=== PATIENT | female | born 1945 | race Caucasian/White ===

== ENCOUNTER 2017-04-23 18:33 | Inpatient (IN) | payer MEDICARE, OTHER ==
[2017-04-22 17:01] LABS: A/G RATIO 1.4 (0.7-1.9); ALBUMIN 3.6 G/DL (3.5-5.0); BUN (BLOOD UREA NITROGEN) 9 MG/DL (6-23); CALCIUM, SERUM 8.7 MG/DL (8.5-10.4); CHLORIDE, SERUM 102 MMOL/L (96-112); CO2 (CARBON DIOXIDE) 30 MMOL/L (24-34); CPK 36 U/L (0-200); CREATININE 0.72 MG/DL (0.55-1.02); GFR AFRICAN AMERICAN 96 ML/MIN (>=60); GFR NON AFRICAN AMERICAN 83 ML/MIN (>=60); GLOBULIN 2.5 G/DL (2.5-4.1); GLUCOSE, SERUM 83 MG/DL (60-99); HDL CHOLESTEROL 43 MG/DL (> 49); POTASSIUM, SERUM 4.1 MMOL/L (3.5-5.3); SGOT(AST) 19 U/L (5-40); SGPT(ALT) 25 U/L (5-65); SODIUM, SERUM 138 MMOL/L (135-148); TOTAL BILIRUBIN 0.4 MG/DL (0-1.2); TOTAL PROTEIN 6.1 G/DL (6.0-8.5)
[2017-04-22 17:07] LABS: ALKALINE PHOSPHATASE 94 U/L (45-117); CHOL/HDL RATIO(NOT ORDER) 4.1 (0-5); CHOLESTEROL 178 MG/DL (< 200); LDL CHOLESTEROL 82 MG/DL (< 130); NON-HDL CHOLESTEROL 135 MG/DL (< 160); TRIGLYCERIDE 267 MG/DL (< 150)
--- NOTE | ~2017-04-23 | HP ---
History And Physical [id number] [place]. [address] NAME: REY BRYAN : 43 STATUS : ADM IN PAT#: [id number] AGE: 72 ADM/REG DATE : 04/23/17 MR#: [id number] REPORT SERV DATE: 04/24/17 DICTATED BY: MAKSIM KUHN DATE: 04/24/17 REPORT STATUS : Draft TRANSCRIBED BY: MODL DATE: 04/24/17 DATE OF ADMISSION: 04/23/2017 REASON FOR ADMISSION: Uterine papillary serous carcinoma, cellulitis around the Port-A-Cath site, subjective fever. HISTORY OF PRESENT ILLNESS: Ms. Bryan is a delightful, 72-year-old, female, who on 12/02/2016, underwent a robot-assisted laparoscopic hysterectomy, BSO and staging. 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 She completed a whole pelvic radiation along with brachytherapy on 02/23/[address] Suzanne Williamson. She recently had a Port-A-Cath placed and received her 1st cycle of adjuvant [place]-based and taxane-based chemotherapy. She called the office earlier in the week complaining of some pain around her port site. She had severe erythema noted and was started on p.o. Bactrim and then called the office last night complaining of increasing pain around the port site, subjective fevers, and a burning sensation along the catheter tract. She was admitted for evaluation and IV antibiotics. PAST MEDICAL HISTORY: Gastroesophageal reflux disease, uterine cancer, hypertension, and anxiety. PAST SURGICAL HISTORY: The above-mentioned staging procedure, knee surgery, cholecystectomy, and tubal ligation. GYNECOLOGIC HISTORY: Her mammogram and Pap smear are both up to date. Her colonoscopy was in 2012. FAMILY HISTORY: Her father with prostate cancer. Her brother had a cancer at the age of 60; she is unsure of the details. SOCIAL HISTORY: Negative for tobacco, alcohol, or illicit drug use. MEDICATIONS: See chart. ALLERGIES: NO KNOWN DRUG ALLERGIES. REVIEW OF SYSTEMS: Significant for pain, albeit decreased at the port site. She denies chest pain. Denies shortness of breath. No abdominal pain and pelvic pain. No nausea or vomiting. No vaginal bleeding. PHYSICAL EXAMINATION: VITAL SIGNS: Temperature is 98.6, pulse is 76, blood pressure is 113/57. HEENT: She has decreased erythema compared to her clinic visit two days ago, but there is minimal blanching around the site and the erythema that is tracking along the catheter course is gone. At this point, her tenderness in that area has resolved. ABDOMEN: Soft, nontender, and nondistended. History And Physical [address] [address] NAME: REY BRYAN : 43 STATUS : ADM IN PAT#: [id number] AGE: 72 ADM/REG DATE : 04/23/17 MR#: [id number] REPORT SERV DATE: 04/24/17 DICTATED BY: MAKSIM KUHN DATE: 04/24/17 REPORT STATUS : Draft TRANSCRIBED BY: LISANDRA DATE: 04/24/17 HEART: Regular rate and rhythm. LUNGS: Clear to auscultation bilaterally. EXTREMITIES: No clubbing, cyanosis, or edema. LABORATORY EVALUATION: Her white blood count cell count is 8.2, hemoglobin 11.6, and platelet count 71. This is expected due to her recent chemotherapy. Her electrolyte panel was normal, and her UA was negative. She had a negative chest x-ray as well. She has blood cultures pending. IMPRESSION AND PLAN: The plan going forward is if her blood cultures are negative, we will continue with the IV vancomycin to see if the port can be salvaged. It seems that her infection is clinically much better after just one dose of the vancomycin. We will continue with the IV antibiotics for another 24 hours or so and then as long as her blood cultures are negative, send her home on oral Bactrim for another 10 days. She is anticipated to receive her 2nd cycle of [place]-based and taxane-based chemotherapy this coming Wednesday. TB/MODL Maksim Kuhn MD / [id number] CC: MD Rip Pziarro M.D.
--- NOTE | ~2017-04-23 | DS ---
Discharge Summary [facility] [address] [place]. [address] NAME: REY GIPSON : 43 STATUS : DIS IN PAT#: [id number] AGE: 72 ADM/REG DATE : 04/23/17 MR#: [id number] REPORT SERV DATE: 04/29/17 DICTATED BY: MAKSIM KUHN DATE: 04/29/17 REPORT STATUS : Draft TRANSCRIBED BY: LISANDRA DATE: 04/29/17 Data Collection from hospitalization DISCHARGE DIAGNOSES: 1. Uterine cancer. 2. Port infection. 3. Gastroesophageal reflux disease. 4. Hypertension. 5. Anxiety. CONSULTATIONS: None. PROCEDURES PERFORMED: None. MEDICATIONS: Norvasc 5 mg every morning, Celexa 20 mg every morning, Zantac 300 mg at bedtime, Prinivil 10 mg every morning, multivitamin with minerals one every morning, Protonix 40 mg twice daily before meals, Zocor 20 mg at bedtime, Carafate 1 g before meals and at bedtime, Bactrim DS one twice daily x7 days, Zofran 8 mg sublingually three times daily as needed, Decadron 20 mg as directed, Bactrim DS one every 12 hours, chemotherapy one dose IV every 21 days, Tylenol 1000 mg daily as needed, iron [id number] one every evening, and probiotic one at bedtime. CONDITION AT DISCHARGE: Upon discharge, she did appear to be doing well and had no complaints. DISPOSITION: She had been discharged home to continue a regular diet with activity as discussed. She was to follow up with me on 04/20/2017. HOSPITAL COURSE: This 72-year-old female, on 12/02/2016, underwent robot-assisted laparoscopic hysterectomy, BSO, and staging. 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 She had completed a whole pelvic radiation along with brachytherapy on 02/23/[address] Suzanne Williamson. She recently had a Port-A-Cath placed and received her first cycle of adjuvant [place] based and taxane-based chemotherapy. She called the office earlier in the week complaining of some pain around her port site. She had severe erythema noted and was started on oral Bactrim and then called the office complaining of increasing pain around the port site, subjective fever, and a burning sensation along with catheter tract. She was admitted for evaluation and IV antibiotics. Upon admission to the hospital, she had been placed on Benadryl 25 mg x1 dose and Toradol 30 mg IV x1 dose. She was begun on vancomycin per Pharmacy dosing. Following the day of admission, she was afebrile and her vital signs were stable. Her port site revealed much less erythema after being started on vancomycin and the pain at the port site was also much better. She was continued on antibiotics. Her blood culture was still pending, and her chest x-ray was noted to have been negative. On 04/25/2017, she was noted to be stable, however, was found to have a rash around the port and the erythema was almost resolved. Her blood culture was negative at 36 hours. Vancomycin was discontinued and she was placed on oral Bactrim. She was to receive Decadron and Benadryl if the rash and symptoms continued. On 04/26/2017, she did appear to be doing well and her port site was improved. She did remain in stable condition and was discharged home on oral antibiotics. She did remain in Discharge Summary [address] [address] NAME: REY GIPSON : 43 STATUS : DIS IN PAT#: [id number] AGE: 72 ADM/REG DATE : 04/23/17 MR#: [id number] REPORT SERV DATE: 04/29/17 DICTATED BY: MAKSIM KUHN DATE: 04/29/17 REPORT STATUS : Draft TRANSCRIBED BY: LISANDRA DATE: 04/29/17 stable condition and was discharged with the above instructions. Information collected by: Hermann GeronimoIMeeT. I submit the above information as my discharge summary. RW/LISANDRA Maksim Kuhn MD / [id number] CC: MD Rip Pizarro M.D.
[~2017-04-23 18:33] MED LIST: ASAB PO; CALCIUM; CALTRA600D PO; CLARIT10 PO; FISH-EPA1000 MG PO; PRILO PO; PRIN10 PO; VERELAN240 MG PO; ZOCOR20 PO
[2017-04-23 19:46] LABS: BASOPHILS 0.2 %; BASOPHILS ABSOLUTE 0.02 10/3/uL (0.0-0.16); EOSINOPHILS 0.9 %; EOSINOPHILS ABSOLUTE 0.07 10/3/uL (0.0-0.53); HEMATOCRIT 33.8 % (36.0-48.0); HEMOGLOBIN 11.6 g/dL (12.0-16.0); IMMATURE GRANULOCYTES 0.6 %; IMMATURE GRANULOCYTES ABSOLUTE 0.05 10/3/uL (0.0-0.11); LYMPHOCYTES 3.9 %; LYMPHOCYTES ABSOLUTE 0.32 10/3/uL (0.67-4.30); MEAN CORPUS HGB CONC 34.3 g/dL (32.0-36.0); MEAN CORPUSCULAR HEMOGLOB 29.6 pg (26.0-34.0); MEAN CORPUSCULAR VOLUME 86.2 fL (80-100); MEAN PLATELET VOLUME 10.4 fL (9.2-13.0); MONOCYTES 2.2 %; MONOCYTES ABSOLUTE 0.18 10/3/uL (0.21-1.20); NEUTROPHILS 92.2 %; NEUTROPHILS ABSOLUTE 7.51 10/3/uL (2.02-8.40); RBC DISTRIBUTION WIDTH 13.5 % (12.0-16.0); RED CELL COUNT 3.92 10/6/uL (4.0-5.6)
[2017-04-23 19:47] LABS: MANUAL DIFF NO %; PLATELET COUNT 71 10/3/uL (150-400); WHITE BLOOD CELLS 8.2 10/3/uL (4.5-10.5)
[2017-04-23 20:02] LABS: ALBUMIN 3.3 G/DL (3.5-5.0); BUN (BLOOD UREA NITROGEN) 10 MG/DL (6-23); CALCIUM, SERUM 8.3 MG/DL (8.5-10.4); CHLORIDE, SERUM 101 MMOL/L (96-112); CO2 (CARBON DIOXIDE) 28 MMOL/L (24-34); CREATININE 0.84 MG/DL (0.55-1.02); GFR AFRICAN AMERICAN 80 ML/MIN (>=60); GFR NON AFRICAN AMERICAN 69 ML/MIN (>=60); SGOT(AST) 18 U/L (5-40); SGPT(ALT) 22 U/L (5-65); SODIUM, SERUM 134 MMOL/L (135-148); TOTAL BILIRUBIN 0.4 MG/DL (0-1.2); TOTAL PROTEIN 6.4 G/DL (6.0-8.5)
[2017-04-23 20:03] LABS: A/G RATIO 1.1 (0.7-1.9); ALKALINE PHOSPHATASE 79 U/L (45-117); GLOBULIN 3.1 G/DL (2.5-4.1); GLUCOSE, SERUM 106 MG/DL (60-99)
[2017-04-23 20:07] LABS: PLATELET ESTIMATE DEC (ADEQUATE); RBC MORPHOLOGY NORM (NORMAL)
[2017-04-23] MEDS ORDERED: BACTRIM DS1 TAB PO (20:11)
[2017-04-23] MEDS ORDERED: ZOFRANODT8 PO/SL (20:12)
[2017-04-23] MEDS ORDERED: DEX4 PO ×2 (20:13→20:16)
[2017-04-23] MEDS ORDERED: PROTONIX PO (20:18)
[2017-04-23] MEDS ORDERED: ACET500CAP PO (20:18)
[2017-04-23] MEDS ORDERED: CHEMOTHERAPY IV (20:18)
[2017-04-23] MEDS ORDERED: ZANTAC300 MG PO (20:19)
[2017-04-23] MEDS ORDERED: SUCR PO (20:19)
[2017-04-23] MEDS ORDERED: PRIN10 PO (20:19)
[2017-04-23] MEDS ORDERED: CELEXA20 PO (20:19)
[2017-04-23] MEDS ORDERED: ZOCOR20 PO (20:19)
[2017-04-23] MEDS ORDERED: IRON OTC PO (20:20)
[2017-04-23] MEDS ORDERED: MULTIVIT/MIN PO (20:20)
[2017-04-23] MEDS ORDERED: NORV5 PO (20:20)
[2017-04-23] MEDS ORDERED: PROBIOTIC OTC PO (20:20)
[2017-04-23 21:40] LABS: ASCORBIC ACID (UR NOT ORDER) NEG (NEG); BILIRUBIN, URINE NEGATIVE (NEG); KETONE, URINE NEGATIVE (NEG); LEUKOCYTE ESTERASE(NOT OR NEG (NEG); WBC (NOT ORDERED) (RFLEX) 2 (0-5)
[2017-04-26] MEDS ORDERED: BACDS PO (10:11)
== END 2017-04-26 10:57 | disposition home or self-care (01) | DRG 316 ==
LOC: 4EA 18:33
PROVIDERS: Family Medicine; Obstetrics & Gynecology Gynecology
DX: T82.7XXA Infection and inflammatory reaction due to other cardiac and vascular devices, implants and grafts, initial encounter (principal); C55 Malignant neoplasm of uterus, part unspecified; Z90.710 Acquired absence of both cervix and uterus
CPT/HCPCS: 36415; 71010; 80053; 80061; 80202; 81001; 82550; 85025; 87040; A9270-GY; J1200; J1885; J3370